=== PATIENT | male | born 1980 | race Caucasian/White ===

== ENCOUNTER → 2019-11-19 | Outpatient (CLI) | payer OTHER ==
--- NOTE | 2019-11-19 10:27 | RADIOLOGY REPORT (SQ) ---
EXAM DESCRIPTION: U/S RETROPERITON (RENAL/AORTA) IMAGES COMPLETED DATE/TIME: 11/19/2019 10:14 am REASON FOR STUDY: LLQ PAIN R10.32 LEFT LOWER QUADRANT PAIN COMPARISON: None. TECHNIQUE: Dynamic and static grayscale images acquired of the kidneys and bladder and recorded on P ACS. Additional selected color Doppler and spectral images recorded. LIMITATIONS: None. FINDINGS: RIGHT KIDNEY: The right kidney measures 12.1 cm in length. The corticomedullary different iation is preserved. There is no hydronephrosis, calcification or mass. LEFT KIDNEY: The left kidney measures 12.2 cm in length. The corticomedullary differentiation is pr eserved. There is no hydronephrosis, calcification or mass. BLADDER: No abnormality. OTHER FINDINGS: No other finding. IMPRESSION: No abnormality of the kidneys or urinary bladder. TECHNICAL DOCUMENTATION: JOB ID: [id number] 2010 [employer]- All Rights Reserved Reading location - IP/workstation name: [email or web address]
--- NOTE | 2019-11-19 10:30 | RADIOLOGY REPORT (SQ) ---
EXAM DESCRIPTION: U/S ABDOMEN COMPLETE W/O DOP IMAGES COMPLETED DATE/TIME: 11/19/2019 10:14 am REASON FOR STUDY: ABDOMINAL PAIN R10.32 LEFT LOWER QUADRANT PAIN COMPARISON: None. TECHNIQUE: Dynamic and static grayscale images acquired of the abdomen and recorded on PACS. Additio nal selected color Doppler and spectral images recorded. Note: Study does not meet criteria for complete doppler/duplex scan LIMITATIONS: None. FINDINGS: PANCREAS: The pancreas is obscured by overlying bowel gas. LIVER: Normal contour and echotexture. LIVER VASCULATURE: Hepatopetal directional flow within the portal veins. The hepatic veins are paten t. GALLBLADDER: The gallbladder is contracted and there is sludge within the gallbladder lumen. The gal lbladder wall is normal in thickness and it measures 2 mm. There is no pericholecystic fluid or chol elithiasis. ULTRASOUND-DETECTED JEFFERS'S SIGN: Negative. INTRAHEPATIC DUCTS AND COMMON DUCT: The common bile duct measures 5 mm in diameter. The intrahepatic bile ducts are normal in caliber. INFERIOR VENA CAVA: Patent. AORTA: The proximal abdominal aorta is obscured by overlying bowel. The mid and distal abdominal aor ta are normal in caliber. SPLEEN: The spleen measures 12.1 cm in length. PERITONEAL AND PLEURAL SPACES: No ascites or effusions. OTHER: No other finding. IMPRESSION: 1. Sludge without other associated findings to indicate an acute cholecystitis. 2. The pancreas and proximal abdominal aorta are obscured by overlying bowel. 3. No abnormality of the liver. 4. No splenomegaly. TECHNICAL DOCUMENTATION: JOB ID: [id number] 2010 [employer]- All Rights Reserved Reading location - IP/workstation name: [email or web address]
== END ==
LOC: RAD 09:10
PROVIDERS: ATTEND Internal Medicine
DX: R10.32 Left lower quadrant pain (principal)
CPT/HCPCS: 76700; 76770